=== PATIENT | male | born 1955 | race Caucasian/White ===

== ENCOUNTER 2017-03-30 10:45 | Emergency (ER) | payer MEDICAID ==
[~2017-03-30] VITALS: Ht 162.6 cm; Wt 77.1 kg
[2017-03-30] MEDS ORDERED: LOSA50TA3 PO (10:54)
[2017-03-30] MEDS ORDERED: ASPI81TA31 PO (10:54)
[2017-03-30] MEDS ORDERED: ATOR80TA PO (10:55)
[2017-03-30] MEDS ORDERED: METF500T4 PO (10:55)
--- NOTE | 2017-03-30 11:09 | NUR ---
pt is in room #2b. dr arellano evaluated the pt.
--- NOTE | 2017-03-30 11:47 | NUR ---
pt was d/c to home . d/c instructions given to the pt.
[2017-03-30 11:48] VITALS: BP 145/84
== END 2017-03-30 11:49 | disposition home or self-care (01) ==
LOC: ER 10:45
DX: H66.93 Otitis media, unspecified, bilateral (principal); I10 Essential (primary) hypertension; Z88.1 Allergy status to other antibiotic agents; E78.5 Hyperlipidemia, unspecified; Z79.82 Long term (current) use of aspirin
CPT/HCPCS: 99283; A4663